=== PATIENT | female | born 1985 | race Caucasian/White ===

== ENCOUNTER 2016-12-14 12:57 | Day surgery (SDC) | payer BC ==
[2016-12-13 10:41] LABS: HEMATOCRIT 41.3 % (36.0-48.0); HEMOGLOBIN 13.9 g/dL (12.0-16.0)
[~2016-12-14] VITALS: Ht 165.1 cm; Wt 124.0 kg
--- NOTE | ~2016-12-14 | OP ---
Record Of Operation [facility] [address] [facility] [place]. [address] NAME: ANGELICA WOODWARD : 87 STATUS : REG [facility]#: [id number] AGE: 31 ADM/REG DATE : 12/14/16 MR#: [id number] REPORT SERV DATE: 12/14/16 DICTATED BY: GASTON PETTIT DATE: 12/14/16 REPORT STATUS : Draft TRANSCRIBED BY: MODL DATE: 12/14/16 DATE OF PROCEDURE: 12/14/2016 PROCEDURE: Tonsillectomy and adenoidectomy. PREOPERATIVE DIAGNOSES: 1. Chronic adenotonsillitis. 2. Adenotonsillar hypertrophy. POSTOPERATIVE DIAGNOSES: 1. Chronic adenotonsillitis. 2. Adenotonsillar hypertrophy. ANESTHESIA: General endotracheal. COMPLICATION: None. FINDINGS: The patient was taken to the OR, placed in supine position. Then was anesthetized, prepped, draped in standard fashion. McIvor mouth gag inserted and red rubber catheter used to elevate the soft palate. Adenoids removed with suction electrocautery under mirror visualization. Right tonsil grasped with a curved clamp and excised from its fossa by Coblation. Same procedure performed on the opposite side. Bipolar electrocautery used to achieve meticulous hemostasis. Bismuth placed in each tonsillar fossa. Patient was awakened, extubated, and taken to the recovery room in good condition. CECY/KENDRICK Gaston Pettit M.D. / [id number] CC: Tree Cortez M.D.
[~2016-12-14 12:57] MED LIST: *DENIES
== END 2016-12-14 19:12 | disposition home or self-care (01) ==
LOC: SDC 12:57
PROVIDERS: Otolaryngology
PROC: 0CBQXZZ Excision of Adenoids, External Approach (ICD-10-PCS; 2016-12-14)
PROC: 0CBPXZZ Excision of Tonsils, External Approach (ICD-10-PCS; principal; 2016-12-14 14:30)
DX: J35.3 Hypertrophy of tonsils with hypertrophy of adenoids (principal); E66.01 Morbid (severe) obesity due to excess calories; Z68.42 Body mass index [BMI] 45.0-49.9, adult; Z87.891 Personal history of nicotine dependence; Z98.890 Other specified postprocedural states
CPT/HCPCS: 84703; 85014; 85018; 88304; A9270-GY; J0330; J1170; J2250; J2405; J2550; J2710; J3010